=== PATIENT | female | born 1970 | race Caucasian/White ===

== ENCOUNTER → 2016-04-20 | Day surgery (SDC) | payer OTHER ==
[~2016-04-20] VITALS: Ht 165.1 cm; Wt 115.6 kg
[~2016-04-20] MED LIST: *RESP: ALBUTEROL 2.5 MG/3 ML NEB (PRN) PERIprocedural Use ONLY NEB ONE; *morphine SULFATE 8 MG/ML PERIprocedure ONLY ONE; ACETAMINOPHEN 1000 MG/100 ML VIAL IV SCH; BUPIVACAINE/EPINEPHRINE 0.25% PF 30 ML VIAL ONE; DO NOT ADM ANY ANTICOAGULANT DRUGS XX PRN; FAMOTIDINE 20 MG/2 ML VIAL ONE; INSULIN HUMAN REGULAR 1,000 UNITS/10 ML VIAL SQ PRN; LACTATED RINGER'S 1000 ML IV SCH; LEVO150T7 PO; METF500T PO; METOPROLOL TARTRATE 25 MG TAB PO PRN; MIDAZOLAM HCL 2 MG/2 ML VIAL ONE; MORPHINE SULFATE 4 MG/ML INJ IV PRN; NEOSTIGMINE 3 MG/3 ML SYR IV ONE; ONDANSETRON HCL 4 MG/2 ML VIAL IV PUSH ONE; ONDANSETRON HCL 4 MG/2 ML VIAL IV PUSH PRN; PROPOFOL 200 MG/20 ML AMP IV ONE; SODIUM CHLORID 0.9% 500 ML IV SCH; ceFAZolin 2 GM PREMIX 50 ML IV SCH; ceFAZolin 2 GM PREMIX 50 ML ONE; fentaNYL CITRATE 250 MCG/5 ML AMP ONE; metroNIDAZOLE 500 MG INJ 100 ML IV SCH; oxyCODONE/ACETAMINOPHEN 5 MG/325 MG TAB PO PRN
[2016-04-20 06:45] VITALS: BP 143/83; PULSE 64; RESP 18; TEMP 98.6; O2SAT 97
[2016-04-20 09:16] VITALS: PULSE 76
--- NOTE | 2016-04-20 09:18 | PD.OP ---
Operative Report Date of Surgery: Apr 20, 2016 Preoperative Diagnosis: (1) Morbid obesity with BMI of 40.0-44.9, adult (2) Biliary colic Postoperative Diagnosis: (1) Biliary colic (2) Morbid obesity with BMI of 40.0-44.9, adult Procedure: Laparoscopic cholecystectomy Anesthesia: JENNY Surgeon: Gilmar Oden Alcohol And Drug Counselor(s): Samara Garcia Operation and Findings: Complications: None apparent EBL: 5 cc Operative findings: The patient had hepatomegaly and appeared to have fatty liver. The gallbladder had stones present. Procedure in detail: The patient was taken to the operating room and placed in the supine position. General endotracheal anesthesia was induced. The abdomen was prepped and draped in usual sterile fashion and a surgical timeout was performed to verify correct patient procedure and site. Appropriate perioperative antibiotics were administered. Local anesthetic was injected in the skin and subcutaneous tissue superior to the umbilicus and a 5 mm incision performed. The abdomen was entered using the Optiview 5 mm trocar with direct laparoscopic visualization. The abdomen was then insufflated to 15 mmHg with CO2 gas which the patient tolerated well. Next a 12 mm port was placed in the epigastrium and two 5 mm ports in the right upper quadrant and right lateral abdomen. The patient was placed in reverse Trendelenburg position and turned slightly to the left. Attention was turned to the right upper quadrant and the dome of the gallbladder was grasped and retracted cephalad. The liver was enlarged. The left lobe was overlying the infundibulum of the gallbladder. Therefore the dominant flex liver retractor was placed through the sales assistant entertainment and media port in the right abdomen and used to retract the left lobe of the liver. The infundibulum then was retracted laterally to expose Calot's triangle. Blunt dissection and judicious use of electrocautery was used to expose the cystic duct and the cystic artery directly entering the gallbladder. Two clips were placed proximally on each of these structures and one distally and they were transected. The gallbladder was then removed from the liver bed using electrocautery. Hemostasis was achieved. The gallbladder was then removed from the abdomen using an Endo Catch bag. The clips were in place on the cystic duct and cystic artery stumps with no bleeding or bile leakage. At this point, the abdomen was allowed to desufflate and trochars were removed. The fascia at the 12 mm port site was closed using the crossbow device with 0 Vicryl suture. Skin was closed with subcuticular 4-0 Monocryl as well as Dermabond. The patient tolerated the procedure well and was extubated and taken to PACU in stable condition. All sponge and instrument counts were correct. Gilmar Oden MD Apr 20, 2016 09:18
[2016-04-20 10:15] VITALS: PULSE 57
[2016-04-20 11:15] VITALS: BP 137/70; PULSE 71; RESP 16; TEMP 97.7; O2SAT 95
== END | disposition home or self-care (01) ==
LOC: HSDC 05:57
PROVIDERS: ATTEND Surgery
DX: K80.10 Calculus of gallbladder with chronic cholecystitis without obstruction (principal); E66.01 Morbid (severe) obesity due to excess calories; Z68.41 Body mass index [BMI] 40.0-44.9, adult
CPT/HCPCS: 00790; 47562; 88304; J0131; J0690; J2250; J2270; J2405; J2710; J3010; J7120; J7613